=== PATIENT | female | born 1995 | race Caucasian/White ===

== ENCOUNTER → 2017-08-19 | Outpatient (CLI) | payer BC ==
[~2017-08-19] MED LIST: CEP500 PO; HYDR-3250 PO; LEVO50TA80 PO
--- NOTE | 2017-08-19 14:29 | RADIOLOGY IMAGING REPORT ---
FACILITY: [facility] PATIENT NAME: Nette Velasco : 1995 MR: [id number] V: [id number] EXAM DATE: ORDERING PHYSICIAN: ОЛЬГА ADRIAN TECHNOLOGIST: Location: [facility] Patient: Nette Velasco : 1995 Visit/Account:[id number] Date of Sevice: 08/19/2017 GALLBLADDER HISTORY: October quadrant pain COMPARISON: None. FINDINGS: Gallbladder: Negative.. Bile ducts: There is no biliary ductal dilation with the CBD measuring 2-3 mm. Liver: Negative. Pancreas: Negative. Right kidney: Negative. Upper abdominal aorta and IVC: Patent. Ascites: None visualized. Other findings: None significant IMPRESSION: 1. Normal Report Dictated By: Moreno Mackey MD at 08/19/2017 2:14 PM Report E-Signed By: Moreno Mackey MD at 08/19/2017 2:25 PM WSN:[id number]
== END ==
LOC: US 04:19
PROVIDERS: ATTEND Nurse Practitioner Family
DX: R10.812 Left upper quadrant abdominal tenderness (principal); R10.811 Right upper quadrant abdominal tenderness
CPT/HCPCS: 76705